=== PATIENT | male | born 1980 | race Hispanic/Latino ===

== ENCOUNTER 2019-11-19 21:02 | Emergency (ER) | payer SELFPAY ==
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
--- NOTE | 2019-11-19 22:24 | XRay Report ---
LEFT ANKLE 3 VIEW(S) LEFT FOOT 3 VIEWS INDICATION / CLINICAL INFORMATION: pain, swelling after injury and laceration COMPARISON: None available. FINDINGS: BONES / JOINT(S): No acute fracture or subluxation of the left ankle or left foot. No significant art hritis. No ankle joint effusion. SOFT TISSUES: Mild lateral ankle soft tissue swelling extending to the dorsum of the foot. No radiopa que foreign body. ADDITIONAL FINDINGS: None. Signer Name: Jessica Avery MD Signed: 11/19/2019 10:19 PM Workstation Name: [id number]
[2019-11-20] MEDS ORDERED: HYDROcodone/ACETAMINOPHEN 7.5-325MG TAB PO ONE (01:40)
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
[2019-11-20 03:25] VITALS: BP 122/74
== END 2019-11-20 02:15 | disposition home or self-care (01) ==
LOC: ED 21:02
DX: L03.116 Cellulitis of left lower limb (principal); F17.200 Nicotine dependence, unspecified, uncomplicated
CPT/HCPCS: 99283

== ENCOUNTER 2019-11-25 13:50 | Emergency (ER) | payer SELFPAY ==
--- NOTE | 2019-11-25 14:37 | Emergency Department Report ---
Suture/Staple Removal - [facility] Chief Complaint: Laceration/Recheck/Suture Stated Complaint: STAPLE REMOVAL Time Seen by Provider: 11/25/19 14:23 When Sutures or [place] Placed: 11/18/19 Wound Location: suture removal left foot ED Review of Systems ROS: Stated complaint: STAPLE REMOVAL Other details as noted in HPI Comment: All other systems reviewed and negative ED Past Medical Hx - Past Medical History Previous Medical History?: No - Surgical History Past Surgical History?: No - Social History Smoking Status: Current Every Day Smoker Substance Use Type: None - Medications Home Medications: Home Medications Medication Instructions Recorded Confirmed Last Taken Type Ibuprofen [Motrin 600 MG tab] 600 mg PO Q8H PRN #15 tablet 11/20/19 Unknown Rx cephALEXin [Keflex] 500 mg PO Q12HR #14 cap 11/20/19 Unknown Rx Suture Removal Exam - Exam General: Vital signs noted. No distress. Alert and acting appropriately. Wound: No Pathologic Erythema, No Tenderness, No Drainage, No Pus, No Wound Dehiscence Other Systems: All other systems reviewed and are unremarkable. ED Recheck MDM - Medical Decision Making Patient is a 39-year-old male who presents the emergency room with complaints of suture removal. Patient had the sutures placed in the [facility] on 11/19/2019. Patient completed a course of antibiotics. he was given a tetanus immunization at the time of incident per pt. He denies any pain, drainage, fever, nausea, vomiting, diarrhea, chills. Wound appears clean, dry, intact. All sutures removed without difficulty. There is no erythema, no drainage, no wound dehiscence, no signs of infection. Discussed wound care with patient. Advised patient to follow-up with a primary care doctor. Return to the emergency room for any new or worsening symptoms. Critical care attestation.: If time is entered above; I have spent that time in minutes in the direct care of this critically ill patient, excluding procedure time. ED Disposition Clinical Impression: Visit for suture removal Disposition: DC-01 TO HOME OR SELFCARE Is pt being admited?: No Does the pt Need Aspirin: No Condition: Stable Instructions: Suture Removal (ED), Acute Wound Care (ED) Additional Instructions: Please continue to keep area clean, dry, covered. May wash with soap and water and immediately dry. No hot tub, pool, soaking in water. Follow-up with a primary care doctor. Return to the emergency room for any new or worsening symptoms. Referrals: SALLY POSEY MD [Staff Physician] - 3-5 Days [facility] [Outside] - 3-5 Days [facility] [Outside] - 3-5 Days Time of Disposition: 14:36 Print Language: ITALIAN
[2019-11-25 14:52] VITALS: BP 136/84
== END 2019-11-25 15:16 | disposition home or self-care (01) ==
LOC: ED 13:50
DX: F17.200 Nicotine dependence, unspecified, uncomplicated (principal); Z48.02 Encounter for removal of sutures; Z79.1 Long term (current) use of non-steroidal anti-inflammatories (NSAID); Z79.899 Other long term (current) drug therapy